=== PATIENT | female | born 1965 | race Caucasian/White ===

== ENCOUNTER → 2018-11-16 08:31 | Outpatient (CLI) | payer MEDICAID ==
[2018-11-16 10:40] LABS: BASOPHILS 0.3 % (0-2); EOSINOPHILS 0.8 % (0-7); HEMATOCRIT 42.6 % (36.0-48.0); HEMOGLOBIN 14.5 g/dL (12-16); LYMPHOCYTES 38.2 % (15-50); MCH 28.3 pg (26.0-34.0); MEAN PLATELET VOLUME 11.4 fL (7.4-10.4); MONOCYTES 9.7 % (2-11); PLATELET COUNT 170 10x3/uL (130-400); RBC 5.13 10x6/uL (4.00-5.40); RDW 14.1 % (11.5-14.5); WBC 3.9 10x3/uL (4.8-10.8)
[2018-11-16 12:57] LABS: ERYTHROCYTE SEDIMENTATION RATE 11 mm/hr (0-30)
== END | disposition home or self-care (01) ==
LOC: D.LAB 08:15 → D.RAD 08:30 → D.LAB 08:31
PROVIDERS: ATTEND Internal Medicine Gastroenterology
DX: K50.90 Crohn's disease, unspecified, without complications (principal)

== ENCOUNTER → 2018-12-04 13:26 | Outpatient (CLI) | payer MEDICAID ==
[2018-12-06 06:15] LABS: ENDOMYSIAL ANTIBODY IGA Negative (Negative)
[2018-12-06 12:15] LABS: ANTIGLIADIN IGA 2 units (0-19); ANTIGLIADIN IGG 3 units (0-19)
== END | disposition home or self-care (01) ==
LOC: D.LAB 08:00
PROVIDERS: ATTEND Internal Medicine Gastroenterology
DX: D72.829 Elevated white blood cell count, unspecified (principal)